=== PATIENT | female | born 1985 | race Caucasian/White ===

== ENCOUNTER 2023-08-10 11:24 | Emergency (ER) | payer MEDICAID ==
[~2023-08-10] VITALS: Ht 175.3 cm; Wt 74.0 kg
[~2023-08-10 11:24] MED LIST: HYDR-4383 PO; NORE1TAB99 PO; ONDA-245 PO
[2023-08-10] MEDS: ondansetron/PF 4mg/2ml inj IV ONE (11:50)
[2023-08-10] MEDS: morphine 4 MG/ML inj SYRINge IV ONE (11:51)
[2023-08-10 12:01] LABS: BASOPHILS # (AUTO) 0.1 X10'3 (0-0.2); BASOPHILS % (AUTO) 0.8 % (0-1); EOSINOPHILS # (AUTO) 0.3 X10'3 (0-0.9); EOSINOPHILS % (AUTO) 4.1 % (0-6); HEMATOCRIT 38.7 % (35.0-45.0); HEMOGLOBIN 12.7 g/dl (12.0-16.0); LYMPHOCYTES # (AUTO) 1.9 X10'3 (1.1-4.8); LYMPHOCYTES % (AUTO) 27.3 % (21-51); MEAN CORPUSCULAR HEMOGLOBIN 25.2 PG (27.0-31.0); MEAN CORPUSCULAR HGB CONC 32.8 g/dL (33.0-36.5); MEAN CORPUSCULAR VOLUME 76.8 FL (78-98); MEAN PLATELET VOLUME 8.3 FL (7.4-10.4); MONOCYTES # (AUTO) 0.5 X10'3 (0-0.9); MONOCYTES % (AUTO) 7.5 % (2-12); NEUTROPHILS # (AUTO) 4.1 X10'3 (1.8-7.7); NEUTROPHILS % (AUTO) 60.3 % (42-75); PLATELET COUNT 229 X10'3 (140-440); RED BLOOD COUNT 5.04 X10'6 (4.20-5.60); RED CELL DISTRIBUTION WIDTH 13.7 % (11.5-14.5); WHITE BLOOD COUNT 6.8 X10'3 (4.5-11.0)
[2023-08-10 12:13] LABS: ALANINE AMINOTRANSFERASE 25 U/L (12-78); ALBUMIN 3.7 G/DL (3.4-5.0); ALBUMIN/GLOBULIN RATIO 1.1 (1.1-1.5); ALKALINE PHOSPHATASE 65 IU/L (46-116); ANION GAP 9 (8-16); ASPARTATE AMINO TRANSFERASE 17 U/L (10-37); BILIRUBIN,TOTAL 0.3 MG/DL (0.1-1.0); BLOOD UREA NITROGEN 11 MG/DL (7-18); CALCIUM 8.3 MG/DL (8.5-10.1); CHLORIDE 107 MMOL/L (99-107); CREATININE 0.92 MG/DL (0.40-0.90); GLUCOSE 85 MG/DL (70-104); LIPASE 32 U/L (16-77); POTASSIUM 3.9 MMOL/L (3.5-5.1); SODIUM 140 MMOL/L (135-145); TOTAL CARBON DIOXIDE 24.2 MMOL/L (24-32); TOTAL PROTEIN 7.2 G/DL (6.4-8.2); eCRCL 88 ML/MIN; eGFR 69 ML/MIN
[2023-08-10 12:35] LABS: C-REACTIVE PROTEIN 0.07 MG/DL (0.0-0.5)
[2023-08-10] MEDS ORDERED: morphine 2 MG/ML inj. syringe IV PRN (12:50)
[2023-08-10] MEDS ORDERED: iohexol 300mg/ml 100ml inj. ONE (12:55)
[2023-08-10] MEDS: piperacillin/tazo 3.375gm/50ml 50 ML IV SCH (13:24)
[2023-08-10] MEDS: normal saline 1000ML IV soln IVB ONE (13:24)
[2023-08-10 15:10] LABS: BILIRUBIN,URINE NEGATIVE (Neg); CLARITY,URINE CLEAR (Clear); COLOR,URINE YELLOW (Yellow); GLUCOSE, URINE NEGATIVE (Neg); KETONES,URINE NEGATIVE (Neg); LEUKOCYTE ESTERASE ,URINE NEGATIVE (Neg); NITRITES, URINE NEGATIVE (Neg); OCCULT BLOOD,URINE TRACE-INTACT (Neg); PH,URINE 7.5 (4.8-8.0); PROTEIN,URINE NEGATIVE (Neg); UROBILINOGEN,URINE 0.2 E.U/dL (0.2-1.0)
[2023-08-10 15:13] LABS: UA COLLECTION TYPE CLN CATCH MIDSTREAM
[2023-08-10 15:15] LABS: URINE HCG NEGATIVE (NEG)
[2023-08-10 15:16] LABS: BACTERIA,URINE NONE SEEN /HPF (Neg); SQUAMOUS EPITHELIAL CELL,UR FEW /LPF (FEW); WBC,URINE 0-4 /HPF (0-4)
[2023-08-10 15:32] VITALS: BP 130/76; PULSE 75; RESP 16; TEMP 98.5; O2SAT 100
== END 2023-08-10 15:33 | disposition home or self-care (01) ==
LOC: ER 11:24
DX: R11.10 Vomiting, unspecified (principal); R10.31 Right lower quadrant pain; Z79.899 Other long term (current) drug therapy
CPT/HCPCS: 36415; 74177; 80053; 81001; 81025; 83690; 85025; 86140; 96365; 96366; 96375; 99285; J2270; J2405; J2543; J7030; Q9967